=== PATIENT | male | born 1950 | race Caucasian/White ===

== ENCOUNTER → 2020-06-01 | Outpatient (CLI) | payer MEDICARE ==
[~2020-06-01] MED LIST: FOLIC ACID 40400 MCG PO; IRON65 M1 PO; OMEPRAZOLE20 MG PO; VITAMIN C BUFF500 MG PO
== END ==
LOC: COL.RAD 05-23 12:45
DX: D72.819 Decreased white blood cell count, unspecified (principal); N13.30 Unspecified hydronephrosis

== ENCOUNTER 2021-02-08 12:50 | Inpatient (IN) | payer MEDICARE, BC ==
[~2021-02-08] VITALS: Ht 165.1 cm; Wt 68.2 kg
[2021-02-08 13:34] LABS: HEMOGLOBIN 11.7 g/dl (13.5-18.0); MEAN CELL VOLUME 102 fl (80.0-100.0); MEAN CORPUSCULAR HEMOGLOBIN 35 pg (27.0-31.0); MEAN CORPUSCULAR HGB CONC 34 g/dl (33.0-37.0); MEAN PLATELET VOLUME 10.1 fl (7.4-10.4); PLATELET COUNT 155 K/mm3 (130-400); RED BLOOD COUNT 3.32 M/mm3 (4.20-5.60); REDCELL DISTRIBUTION WIDTH-CV 13.9 % (11.5-14.5)
[2021-02-08 13:47] LABS: ALBUMIN 3.2 gm/dL (3.5-5.0); CALCIUM 7.9 mg/dL (8.4-10.2); CREATININE, serum 0.88 (0.66-1.25); POTASSIUM 4.6 mmol/L (3.4-5.0); TOTAL PROTEIN 6.3 gm/dL (6.4-8.2)
[2021-02-08 13:50] LABS: COLLECTION METHOD CLEAN CATCH
[2021-02-08 13:58] LABS: MUCOUS Present /lpf; PH 5 (5-8); SQUAMOUS EPITHELIAL None Seen /hpf; URINE APPEARANCE Hazy; URINE BACTERIA Rare /hpf; URINE BILIRUBIN Negative (NEGATIVE); URINE BLOOD 2+ (NEGATIVE); URINE COLOR Yellow; URINE GLUCOSE 3+ (NEGATIVE); URINE KETONE 1+ (NEGATIVE); URINE LEUKOCYTE ESTERASE Trace (NEGATIVE); URINE NITRATE Negative (NEGATIVE); URINE PROTEIN(semi-quant) Negative (NEGATIVE); URINE UROBILINOGEN Negative (NEGATIVE)
[2021-02-08 13:59] LABS: INR 1.5 (0.8-3.0); PROTHROMBIN TIME 16.9 SECONDS (9.7-12.8)
[2021-02-08 14:01] LABS: C-REACTIVE PROTEIN 21.1 mg/dL (0.0-0.9)
[2021-02-08 14:09] LABS: BAND 15 % (0-10); LYMPHOCYTE 19 % (20.0-51.0); NEUTROPHILS 66 % (42.0-75.2); PLATELET ESTIMATE NORMAL (NORMAL)
[2021-02-08 14:31] LABS: TROPONIN-I 0.019 ng/mL (0.000-0.035)
--- NOTE | 2021-02-08 16:50 | NUR ---
Roofing Supervisor was contacted by JACOB Medellin at Dr. Oconnell's office who advised patient's friend, Aleksandr Smith (ph#[phone]) contacted her and was concerned with conditions of patient's home. Aleksandr had reported that patient is hoarding and his air conditioning is not working. Aleksandr also advised that patient is having to go to his ex , Juanis's home to shower and cool off. JACOB made report to Adult Protective Services ([id number]). Roofing Supervisor contacted patent's friend, Aleksandr who advised she has made arrangements with patient's ex , Juanis for patient to stay there tonight. Aleksandr advised she has concerns with the condition of patient's home. JACOB advised Aleksandr that a report had been made to APS and Aleksandr was in agreement. Aleksandr states she also contacted Paula Snowden at [facility] who does patient's annual BASIS assessment. Patient is assessed annually and up to this point, has been to independent and functional to qualify for any services through [facility]. Aleksandr advised that Paula also intends to make a report to APS and will work to see if they can re-assess patient due to current circumstances. JACOB also discussed Home Health services with Paula and reviewed agencies that serve [place]. Paula states patient would likely choose [facility]. JACOB contacted Miley at [facility] and faxed referral. JACOB then collaborated with JACOB Medellin at Dr. Oconnell's office who will work on scheduling follow up appointment and follow up with Dr. Oconnell about orders for as patient has been struggling to manage his diabetes at home. Patient has Medicare and [employer] [place]. 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 Patient retired about three years ago. JACBO collaborated the above information to ED RN. Brandon to fruit picker machine operator patient as he is cleared for discharge.
[2021-02-08] MEDS ORDERED: GLUCOPHAGE XR500 M1 PO (18:53)
[2021-02-08] MEDS ORDERED: LIPITOR 40MG TA40 MG PO (18:54)
[2021-02-08 19:20] LABS: CALCIUM 7.9 mg/dL (8.4-10.2); CREATININE, serum 0.77 (0.66-1.25); POTASSIUM 4.5 mmol/L (3.4-5.0)
--- NOTE | 2021-02-08 23:45 | NUR ---
PATIENT ARRIVED TO FLOOR FROM ED AT 23:23 PM ALERT AND ORIENTED X 3. INCONTINENT OF URINE. IVF NS INFUSING. VITAL SINGS STABLE. BOARDING MACHINE OPERATOR ON. CONDOM CATHETER APPLIED. PATIENT ORIENTED TO ROOM. CALL LIGHT IN REACH. BED LOW AND LOCKED. WILL CONTINUE TO MONITOR.
[2021-02-09] VITALS (8 sets, daily range): BP systolic 108–134; BP diastolic 56–68; PULSE 91–123; TEMP 98.2–99.5
[2021-02-09 07:15] LABS: HEMOGLOBIN 10.6 g/dl (13.5-18.0); MEAN CELL VOLUME 102 fl (80.0-100.0); MEAN CORPUSCULAR HEMOGLOBIN 35 pg (27.0-31.0); MEAN CORPUSCULAR HGB CONC 35 g/dl (33.0-37.0); MEAN PLATELET VOLUME 10.5 fl (7.4-10.4); PLATELET COUNT 140 K/mm3 (130-400)
[2021-02-09 07:16] LABS: HEMATOCRIT 30.6 % (42.0-52.0)
[2021-02-09 07:20] LABS: CALCIUM 7.4 mg/dL (8.4-10.2); CREATININE, serum 0.75 (0.66-1.25); POTASSIUM 3.8 mmol/L (3.4-5.0)
[2021-02-09 07:32] LABS: TROPONIN-I 0.018 ng/mL (0.000-0.035)
[2021-02-09 07:55] LABS: BAND 2 % (0-10); LYMPHOCYTE 26 % (20.0-51.0); NEUTROPHILS 70 % (42.0-75.2)
[2021-02-09 07:56] LABS: ANISOCYTOSIS 1+; PLATELET ESTIMATE NORMAL (NORMAL)
--- NOTE | 2021-02-09 18:48 | NUR ---
1755 PT HEART RATE WENT UP TO THE 140'S. VS CHECKED AND STABLE. PTDENIES ANY CHEST PAIN OR CHEST DISCOMFORT. CALL PLACE TO DR. DORANTES. ORDERS RECEIVED. 12 LEAD EKG DONE STAT. METOPROLOL AND IV 500CC NS BOLUS ADMINISTERED. PT HEART RATE DOWN TO 106. WILL CONTINUE TO MONITOR.
--- NOTE | 2021-02-09 19:22 | NUR ---
Received report from Maynor. Patient awake in bed. With ongoing NS bolus.
[2021-02-09 19:24] LABS: CALCIUM 7.2 mg/dL (8.4-10.2); CREATININE, serum 0.67 (0.66-1.25); POTASSIUM 3.9 mmol/L (3.4-5.0)
--- NOTE | 2021-02-09 21:10 | NUR ---
Assesment done. Patient says he just feels weak. He was able to lift his BUE but he cannot lift at all his legs. He denies pain. With condom catheter draining judy clear urine. Bed alarm on.
--- NOTE | 2021-02-10 02:24 | NUR ---
Contacted by director orange that patient is having several A-fib RVR for a few seconds with HR 150-160s and back to normal. BP 102/57 at 01:45 am. Called [facility] O[facility]pe[facility] and updated. Received order to give Metoprolol 5mg IV and NS IV bolus. Metorprolol IV given per OCT. NS IVF given per OCT. Will continue to monitor.
[2021-02-10 04:25] VITALS: BP 101/63; PULSE 87; TEMP 97.6
[2021-02-10 07:23] LABS: CREATININE, serum 0.61 (0.66-1.25); POTASSIUM 3.9 mmol/L (3.4-5.0)
[2021-02-10 07:42] VITALS: BP 119/59; PULSE 92; TEMP 97.2
--- NOTE | 2021-02-10 08:49 | NUR ---
Vancomycin Initial Dosing Pharmacy Note Ordering provider: Yung Branham MD Indication/duration: staph aureus bacteremia, 10 days LABS: SCr 0.61, CrCl~86, GFR 131 Recommendation: Give Vancomycin 1.5 gm IV x1 loading dose, then Vancomycin 1 gm IV q12h. Pharmacy will continue to monitor and check a Vancomycin trough on 02/12/21. Loading dose: 1.5 grams Maintenance dose: 1 gram every 12 hours Trough goal: 15-20 ug/mL
--- NOTE | 2021-02-10 09:00 | NUR ---
(late entry 02/09) Office Director attended clincial rounds with the team. The patient's friend Aleksandr on speaker phone. Per Aleksandr the patient lives alone and owns his own mobile home. The patient mental function at a 3rd or 4th grade level. The patient is typically independent. The patient's PCP is Dr. Oconnell. The patient states he as has two children, Crystal unknown last name and Walter Squires. The patient states they live in [place] but is estranged from them and does not know where they live. The patient has an aunt Margot Lee #[phone] and several siblings. Tu is the patient's youngest brother. PT is recommending post acute rehab. SW to contact Margot to discuss options. *Discharge disposition at this time: Post acute rehab*
--- NOTE | 2021-02-10 10:15 | NUR ---
Initial visit; Patient thanked Raw Sampler for listening and offering God's blessings. Raw Sampler called his nurse at his request.
--- NOTE | 2021-02-10 11:00 | NUR ---
Director Of Teenage Activities contacted the patient's aunt Margot Lee #[phone] to discuss placement. SW discussed Medicare.gov's list of post acute rehab. The choices are [facility], [facility], and [facility] in no particular order. Referrals sent. Margot states the the patient's ex- Juanis #[phone] is in contact with the patient's son, Walter. Margot states that she is 81 and has medical issues and does not want to get too involved with the patient. The patient has several siblings and she will have the youngest, Tu contact this SW. JACOB contacted MARCEL Benson Worker regarding the patient to provide the above information. Marcelino is assigned to the case. *Discharge disposition: Post acute rehab. Referrals sent to [facility], [facility]. Awaiting screens.
[2021-02-10 11:40] VITALS: BP 104/62; PULSE 95; TEMP 98.4
--- NOTE | 2021-02-10 12:37 | NUR ---
Noted to have methicillin resistant staphlococcus aureus growing in urine. Pt. to be placed in contact precautions.
[2021-02-10 17:15] VITALS: BP 134/86; PULSE 109; TEMP 97.6
[2021-02-10 19:04] VITALS: BP 112/72; PULSE 101; TEMP 99
--- NOTE | 2021-02-10 20:00 | NUR ---
Report received, assumed care for night manager. Assessment complete. A&O to self-very confused/forgetful. VS stable. Denies pain/nausea/shortness of breath. External male cath in place draining clear yellow urine. Plan of care discussed for this shift to include HS meds/antibiotics/calling for questions/concerns. Verbalizes understanding/denies needs. Call light in reach/bed alarm on. Will monitor.
[2021-02-11] VITALS (7 sets, daily range): BP systolic 104–130; BP diastolic 55–83; PULSE 77–96; TEMP 97.6–98.7
[2021-02-11 07:17] LABS: CALCIUM 7.4 mg/dL (8.4-10.2); CREATININE, serum 0.56 (0.66-1.25); HEMOGLOBIN 10.3 g/dl (13.5-18.0); MEAN CELL VOLUME 101 fl (80.0-100.0); MEAN CORPUSCULAR HEMOGLOBIN 35 pg (27.0-31.0); MEAN CORPUSCULAR HGB CONC 35 g/dl (33.0-37.0); MEAN PLATELET VOLUME 10.9 fl (7.4-10.4); PLATELET COUNT 126 K/mm3 (130-400); POTASSIUM 3.7 mmol/L (3.4-5.0); RED BLOOD COUNT 2.94 M/mm3 (4.20-5.60)
[2021-02-11 07:20] LABS: HEMATOCRIT 29.8 % (42.0-52.0)
[2021-02-11 09:13] LABS: BAND 12 % (0-10); EOSINOPHIL 3 % (0-4); LYMPHOCYTE 27 % (20.0-51.0); NEUTROPHILS 54 % (42.0-75.2); PLATELET ESTIMATE NORMAL (NORMAL)
--- NOTE | 2021-02-11 11:05 | NUR ---
0800 CRITICAL LAB VALUE RECEIVED (WBC 1.6). DR. CARPENTER MADE AWARE AND WILL REVIEW PT'S LABS. 1100 PT HAS A RVP TO BE DONE BUT ONE WAS ALREADY DONE. Christina CARPENTER MADE AWARE AND STATES PT DOES NOT NEED ANOTHER ONE. CALL PLACE TO FINANCIAL PROFESSIONAL TRUXTON AND SHE WILL CANCEL RVP.
--- NOTE | 2021-02-11 20:00 | NUR ---
Report received, assumed care for shift supervisor melting. Assessment complete. VS stable. Denies pain/nausea/shortness of breath. Is alert and partially oriented-forgetful. INT to right AC flushes without difficulty. External male cath with clear yellow urine. Plan of care discussed for this shift to include HS meds/blood sugar monitoring/calling for questions/concerns. Verbalizes understanding/denies current needs. Call light in reach. Will monitor.
--- NOTE | 2021-02-11 23:55 | NUR ---
Report given to IDALIA Ryan.
[2021-02-12 04:08] VITALS: BP 126/71; PULSE 90; TEMP 98.6
--- NOTE | 2021-02-12 05:14 | NUR ---
Changed patient's purewick. Repositioned him in bed and changed his bedsheets and gown.
[2021-02-12 07:53] LABS: MEAN CELL VOLUME 103 fl (80.0-100.0); MEAN CORPUSCULAR HEMOGLOBIN 35 pg (27.0-31.0); MEAN CORPUSCULAR HGB CONC 34 g/dl (33.0-37.0); MEAN PLATELET VOLUME 10.5 fl (7.4-10.4); PLATELET COUNT 174 K/mm3 (130-400); RED BLOOD COUNT 3.13 M/mm3 (4.20-5.60)
[2021-02-12 07:56] LABS: HEMATOCRIT 32.3 % (42.0-52.0)
[2021-02-12 08:02] LABS: CALCIUM 7.6 mg/dL (8.4-10.2); CREATININE, serum 0.59 (0.66-1.25); POTASSIUM 4.1 mmol/L (3.4-5.0)
[2021-02-12 08:08] VITALS: BP 130/69; PULSE 84; TEMP 98.3
[2021-02-12 09:01] LABS: BAND 2 % (0-10); EOSINOPHIL 2 % (0-4); LYMPHOCYTE 10 % (20.0-51.0); NEUTROPHILS 85 % (42.0-75.2)
[2021-02-12 09:02] LABS: ANISOCYTOSIS 1+; HYPOCHROMIA 1+; PLATELET ESTIMATE NORMAL (NORMAL)
[2021-02-12 11:55] VITALS: BP 124/77; PULSE 88; TEMP 98.2
[2021-02-12 16:45] VITALS: BP 137/70; PULSE 89; TEMP 97.6
[2021-02-12 20:29] VITALS: BP 135/79; PULSE 99; TEMP 97.6
--- NOTE | 2021-02-12 21:00 | NUR ---
PT IN BED. IS ALERT, FORGETFUL. TAKES HS MEDS WHOLE, WITHOUT DIFFICULTY. HAS EXTERNAL CATHETER ON, DRAINING CLEAR YELLOW URINE. HAS DECREASED MOBILITY IN LOWER LEGS. SL TO RIGHT AC, FLUSHES WELL. DENIES PAIN AT THIS TIME.
[2021-02-12 23:04] VITALS: BP 122/66; PULSE 83; TEMP 98.5
[2021-02-13 03:10] VITALS: BP 120/71; PULSE 89; TEMP 98.7
--- NOTE | 2021-02-13 04:00 | NUR ---
HAS BEEN RESTING WELL, EXT CATH DRAINING. DENIES NEEDS AT THIS TIME.
[2021-02-13 06:25] LABS: HEMOGLOBIN 12.1 g/dl (13.5-18.0); MEAN CELL VOLUME 103 fl (80.0-100.0); MEAN CORPUSCULAR HEMOGLOBIN 35 pg (27.0-31.0); MEAN CORPUSCULAR HGB CONC 34 g/dl (33.0-37.0); MEAN PLATELET VOLUME 10.5 fl (7.4-10.4); PLATELET COUNT 208 K/mm3 (130-400); RED BLOOD COUNT 3.48 M/mm3 (4.20-5.60)
[2021-02-13 06:36] LABS: CALCIUM 8.3 mg/dL (8.4-10.2); CREATININE, serum 0.66 (0.66-1.25); POTASSIUM 4.2 mmol/L (3.4-5.0)
[2021-02-13 06:40] LABS: HEMATOCRIT 35.9 % (42.0-52.0)
[2021-02-13 07:26] LABS: EOSINOPHIL 1 % (0-4); LYMPHOCYTE 25 % (20.0-51.0); MYELOCYTE 2 % (0-0); NEUTROPHILS 69 % (42.0-75.2)
[2021-02-13 07:27] LABS: PLATELET ESTIMATE NORMAL (NORMAL)
[2021-02-13 08:18] VITALS: BP 123/77; PULSE 97; TEMP 98.5
--- NOTE | 2021-02-13 08:40 | NUR ---
Shift assessment complete. Pt sitting in bed eating breakfast. Able to take pills whole w/some difficulty. Frequently coughs up clear mucous, reports this happens often when he tries to eat or drink. Lungs CTA. Heart RRR. A&Ox4. Denies needs. Call light in reach and bed alarm on.
[2021-02-13 11:05] VITALS: BP 103/78; PULSE 86; TEMP 97.8
[2021-02-13] MEDS ORDERED: AMOXICILLIN 8751 TAB PO (11:06)
[2021-02-13] MEDS ORDERED: ELIQUIS 5MG PO (11:06)
[2021-02-13] MEDS ORDERED: TYLENOL 325MG325 MG PO (11:07)
[2021-02-13] MEDS ORDERED: NOVOLOG 100U100 U/M1 SQ (11:07)
[2021-02-13] MEDS ORDERED: CORDARONE200 MG/TAB PO (11:07)
[2021-02-13] MEDS ORDERED: LOPRESSOR 225 MG/TAB PO (11:07)
--- NOTE | 2021-02-13 12:01 | NUR ---
Report called to [facility] nurse Jimenez. All questions answered.
--- NOTE | 2021-02-13 12:30 | NUR ---
Pt escorted down to IPR via wheelchair w/all belongings.
--- NOTE | 2021-02-13 13:24 | NUR ---
The patient discharged to [facility] today, 02/13 for post acute rehab. The patient's room board had his sisters (Hina) contact information. Her phone number is # [phone]. The patient's brother Tu phone number is # [phone]. JACOB contacted Hina and she was in agreeance with the plan for IPR. Hina reports she and Tu would like to be involved with the discharge planning. JACOB ensured her that they would be involved in the discharge planning process. JACOB collaborated the above with the IPR SW.
== END 2021-02-13 12:30 | DRG 872 ==
LOC: COL.ER 12:50 → MEDICAL 18:12
PROVIDERS: Emergency Medicine; Internal Medicine; Nurse Practitioner Family; Physician Assistant; ADMIT Internal Medicine
DX: A41.01 Sepsis due to Methicillin susceptible Staphylococcus aureus (principal); E87.1 Hypo-osmolality and hyponatremia; G93.40 Encephalopathy, unspecified; N39.0 Urinary tract infection, site not specified; E78.5 Hyperlipidemia, unspecified; D64.9 Anemia, unspecified; E11.65 Type 2 diabetes mellitus with hyperglycemia; I48.91 Unspecified atrial fibrillation; J32.0 Chronic maxillary sinusitis; G72.89 Other specified myopathies; D72.819 Decreased white blood cell count, unspecified; Z79.84 Long term (current) use of oral hypoglycemic drugs
CPT/HCPCS: 99223-AI; 99232-AI; 99233-AI; 99239; J0696; J1650; J1815; J3370; J7030; J7040; J7050

== ENCOUNTER 2021-02-13 10:29 | Inpatient (IN) | payer MEDICARE, BC ==
[~2021-02-13] VITALS: Ht 165.1 cm; Wt 70.4 kg
[~2021-02-13 10:29] MED LIST changes: +GLUCOPHAGE XR500 M1 PO; +LIPITOR 40MG TA40 MG PO
[2021-02-13] MEDS ORDERED: ELIQUIS 5MG PO (11:06)
[2021-02-13] MEDS ORDERED: AMOXICILLIN 8751 TAB PO (11:06)
[2021-02-13] MEDS ORDERED: NOVOLOG 100U100 U/M1 SQ (11:07)
[2021-02-13] MEDS ORDERED: TYLENOL 325MG325 MG PO (11:07)
[2021-02-13] MEDS ORDERED: CORDARONE200 MG/TAB PO (11:07)
[2021-02-13] MEDS ORDERED: LOPRESSOR 225 MG/TAB PO (11:07)
--- NOTE | 2021-02-13 13:00 | NUR ---
PATIENT ADMITED FROM MEDICAL INTO IPR ROOM 337. THERAPY AT BEDSIDE. SEE ADMISSION ORDERS.
[2021-02-13 17:14] VITALS: BP 114/76; PULSE 87; TEMP 98.1
[2021-02-13 18:27] VITALS: BP 114/76; PULSE 87; TEMP 98.1
--- NOTE | 2021-02-13 18:52 | NUR ---
Received report from IDALIA Velazquez. Patient is bed and eating. Call light and bedside table are within reach.
--- NOTE | 2021-02-13 19:16 | NUR ---
RECEIVED CHANGE OF SHIFT REPORT FROM DAY SHIFT NURSE. BED ALARM ON, PATIENT RESTING IN BED AT THIS TIME.
--- NOTE | 2021-02-13 20:00 | NUR ---
PATIENT DENIES CHEST PAIN/SOA AT THIS TIME. SPEECH CLEAR AND APPROPRIATE AT AT THIS TIME. CONDOM CATHETER IN PLACE. ON ROOM AIR. DENIES ANY DISCOMFORT OR NEEDS.
--- NOTE | 2021-02-14 01:14 | NUR ---
PATIENT AWAKE AT THIS TIME, STATES HE WOKE UP AND CANNOT GO BACK TO SLEEP. AGREED TO TAKE TYLENOL FOR COMFORT TO GO BACK TO SLEEP
[2021-02-14 03:58] VITALS: BP 105/65; PULSE 79; TEMP 97.9
--- NOTE | 2021-02-14 06:30 | NUR ---
Report received from IDALIA Velazquez. Patient is sleeping in bed. Call light and bedside table are within reach. Will continue to monitor patient throughout shift.
--- NOTE | 2021-02-14 06:55 | NUR ---
CHANGE OF SHIFT REPORT GIVEN TO DAY SHIFT NURSES, ARON RN AND SANDRA RN. BED ALARM ON.
--- NOTE | 2021-02-14 12:36 | NUR ---
Initial visit; Patient thanked Garage Door Technician for looking in on him and offering God's blessings.
--- NOTE | 2021-02-14 14:26 | NUR ---
This nurse removed patient's condomn catheter with no issues and requested the patient let the staff know when he has to urinate. Patient acknowledged understanding. Patient requested a urinal for bedside use until while he is bladder retraining. Will continue to monitor patient throughout shift.
[2021-02-14 15:27] VITALS: BP 118/72; PULSE 90; TEMP 97.7
--- NOTE | 2021-02-14 17:05 | NUR ---
SW met with the patient to complete intake, as the patient is new to [facility]. The patient lives alone in [place]. He states that his family lives up in the [facility]. He reports independence with ADLs before hospitalization and does not have any DME. The patient's PCP is Dr. Monae Oconnell and he receives his medications from [facility]. The patient does not have a DPOA-HC. The patient verbalized what a DPOA-HC is and that it designates someone to make decisions for him, if he cannot. SW asked the patient if he would like to complete one. The patient states that he believes his sister, Hina (ph#[phone]), is working on one for him. The patient is . He has two children: Vimal and Inna. His brother, Tu (ph#[phone]), is also involved in his care. The patient had no other questions for SW at this time. SW to follow up with the patient's sister about the DPOA-HC.
--- NOTE | 2021-02-14 18:44 | NUR ---
Report given to IDALIA Velazquez. Patient is currently in bathroom.
--- NOTE | 2021-02-14 18:52 | NUR ---
RECEIVED CHANGE OF SHIFT REPORT FROM DAY SHIFT NURSE. BED ALARM ON WHEN IN BED.
--- NOTE | 2021-02-14 20:00 | NUR ---
PATIENT DENIES ANY NEEDS OR CONCERNS. BED ALARM ON WHEN IN BED. ON ROOM AIR.
--- NOTE | 2021-02-15 02:28 | NUR ---
PATIENT SLEEPING, DOES NOT WAKE WHEN ROOM ENTERED BY STAFF. BED ALARM ON, CALL LIGHT WITHIN REACH. BREATHING OBSERVED NONLABORED AND EVEN.
[2021-02-15 05:09] VITALS: BP 115/66; PULSE 80; TEMP 97.4
--- NOTE | 2021-02-15 07:05 | NUR ---
CHANGE OF SHIFT REPORT GIVEN TO DAY SHIFT NURSE, RAMIRO FRIEDMAN. BED ALARM ON WHILE IN BED.
--- NOTE | 2021-02-15 16:43 | NUR ---
Team Conference meeting was today. JACOB contacted the patient's sister, Hina, to review the IPR Team Conference Note. The patient has progressed well and the team has set a d/c date for next , 02/23. Services are to be determined. Hina is in agreement to the d/c date. She reports that the patient does not want to go back to his trailer home and plans on selling it. JACOB discussed assisted living, long-term care, and respite stays and how it would be private pay. Hina reports that the patient does not have the funds to private pay at a facility. JACOB inquired about the option of the patient staying with friends or family members, until the patient gets a new apartment. Hina reports that the patient could probably stay with their brother, Tu, in [place]. She reports that she could get him set up with meals on wheels there and other services. Hina asks that SW contact Tu to discuss the above. JACOB then met with the patient and updated him on the above and presented and reviewed the IPR Team Conference Note. The patient confirms that he plans on cleaning up an selling his trailer. He reports that he would be open to staying with his brother in [place] until he finds a place. He had no other questions for SW at this time. JACOB to contact the patient's brother tomorrow, 02/16.
[2021-02-15 17:23] VITALS: BP 128/78; PULSE 98; TEMP 97.8
--- NOTE | 2021-02-15 18:30 | NUR ---
Patient did well today. He was up several times to the chair. Denies nausea and pain. He gets grumpy at times and starts to yell into the hallway at times. He called to go to the bathroom, this nurse was next door finishing with another patient. Within a few seconds of calling, he started to yell out he needs to go to the bathroom. He has also been yelling out for help at times instead of using he call light. Reminded him he needs to call for help. He has been eating and drinking without issues. No other changes at this time. Call light within reach. Bed alarm on.
--- NOTE | 2021-02-15 21:00 | NUR ---
PT RESTING IN BED. HAS URINARY URGENCY AT TIMES. DENIES BURNING. ON AUGMENTIN FOR UTI. PT ADMITS TO HAVING BM BUT FLUSHED IT. REMINDED PATIENT IMPORTANCE OF SAFETY. CALL LIGHT AND BED ALARM. PT AGREED. TAKES 2 PILLS AT AT TIMES W/WATER. COUGHS AT TIMES.
[2021-02-16 05:14] VITALS: BP 116/84; PULSE 79; TEMP 98.1
--- NOTE | 2021-02-16 13:48 | NUR ---
Admission QIM scores were reviewed by the team. Code of 5 chosen for eating was determined by team discussion to be the most usual performance for this patient during the assessment period. Code of 4 chosen for rolling left to right was determined by team discussion to be the most usual performance before interventions for this patient during the assessment period. Code of 3 chosen for sit to lying was determined by team discussion to be the most usual performance for this patient during the assessment period. Code of 3 chosen for lying to sitting on side of bed was determined by team discussion to be the most usual performance for this patient during the assessment period. Code of 2 for sit to stand was determined by team discussion to be the most usual performance for this patient during the assessment period. Code of 2 for chair/bed to chair transfers was determined by team discussion to be the most usual performance for this patient during the assessment period.--Laura Katz, PD
--- NOTE | 2021-02-16 13:50 | NUR ---
JACOB contacted the patient's brother, Tu, to discuss the option of the patient coming and staying with him upon discharge on 02/23 until the patient finds a new apartment. Tu reports that he would be agreeable to this plan. He states that he works 10-12 hours a day though and just wants to make sure that the patient would be able to be at home by himself. JACOB discussed keeping his PCP is [place] or switching to PCP in [place]. Tu reports that they would be able to bring the patient up to [place] for his appointments with Dr. Oconnell. A patient/family meeting was scheduled for next Saturday, 02/21, at 1300. Tu plans to be here for the meeting. JACOB updated IPR Director.
[2021-02-16 17:36] VITALS: BP 114/69; PULSE 86; TEMP 98
--- NOTE | 2021-02-16 18:30 | NUR ---
Patient did well today. No complaints of pain or nausea. He ate and drank without issues. No complaints of pain or nausea. Assisted him with a walk around the unit this afternoon. His ex- was here, she stated someone was going to his to help get it cleaned up. He said he did not know if she tell the truth. No other changes at this time. Call light within reach. Bed alarm on.
[2021-02-17 05:52] VITALS: BP 119/82; PULSE 81; TEMP 97.9
--- NOTE | 2021-02-17 06:30 | NUR ---
Received report from IDALIA Rucker. Patient was in bed. Call light and bedside table are within reach. Bed alarm is on. Will continue to monitor patient throughout shift.
--- NOTE | 2021-02-17 09:32 | NUR ---
Patient given prn Tylenol for low back pain. Will continue to monitor.
[2021-02-17 18:23] VITALS: BP 111/72; PULSE 84; TEMP 98
--- NOTE | 2021-02-17 20:07 | NUR ---
Patient attended all therapies this shift. He tolerated diet well. He did not complain of pain this morning, but this evening he was having some lower back pain, that was relieved by repositioning in bed. He is currently resting in bed, call light in reach and alarm set. Reported off to night nurse.
--- NOTE | 2021-02-17 22:42 | NUR ---
PT HAS BEEN RESTING WELLS. HE RATED HIS PAIN 0/10. WALK TO THE [facility] WITH NO COMPLAINT.WILL CONTINUE TO MONITOR.
[2021-02-18 05:27] VITALS: BP 124/58; PULSE 84; TEMP 98.5
--- NOTE | 2021-02-18 08:23 | NUR ---
Pt awake and alert this morning, talkative. Assisted to restroom. Shift assessments complete, left Pt call light in reach, bed in lowest position.
--- NOTE | 2021-02-18 21:24 | NUR ---
Pt has been in a good spirit. pain rated 0/10. Will continue to monitor.
[2021-02-19 05:24] VITALS: BP 131/47; PULSE 88; TEMP 97.9
--- NOTE | 2021-02-19 08:00 | NUR ---
PATIENT IS A&O. VSS. DENIES PAIN OR NAUSEA. BREAKFAST TRAY AT BESIDE. AM MEDS GIVEN. HEAD TO TOE ASSESSMENT COMPLETE. NO OTHER NEEDS. CALL LIGHT IN REACH. PATIENT SITTING UP IN WHEELCHAIR.
[2021-02-19 15:08] VITALS: BP 116/67; PULSE 86; TEMP 98.2
--- NOTE | 2021-02-19 18:32 | NUR ---
RECEIVED CHANGE OF SHIFT REPORT FROM DAY SHIFT NURSE. BED ALARM ON.
--- NOTE | 2021-02-19 20:30 | NUR ---
PATIENT DENIES CHEST PAIN/SOA AT THIS TIME. DENIES ANY DISCOMFORT TO BACK AT THIS TIME WHILE RESTING IN BED.
--- NOTE | 2021-02-19 23:51 | NUR ---
PATIENT NOW ASLEEP, DOES NOT WAKE WHEN STAFF ENTER ROOM. BREATHING NONLABORED AND EVEN. BED ALARM ON, CALL LIGHT WITHIN REACH.
--- NOTE | 2021-02-20 03:57 | NUR ---
PATIENT SLEEPING, DOES NOT WAKE WHEN STAFF ENTER ROOM. BREATHING NONLABORED AND EVEN. BED ALARM ON, CALL LIGHT WITHIN REACH.
[2021-02-20 04:54] VITALS: BP 104/53; PULSE 81; TEMP 97.4
--- NOTE | 2021-02-20 07:17 | NUR ---
CHANGE OF SHIFT REPORT GIVEN TO DAY SHIFT NURSE, TEETEE FRIEDMAN.
--- NOTE | 2021-02-20 08:00 | NUR ---
PATIENT IS A&O. VSS. DENIES PAIN OR NAUSEA. BREAKFAST TRAY AT BESIDE. AM MEDS GIVEN. HEAD TO TOE ASSESSMENT COMPLETE. NO OTHER NEEDS. CALL LIGHT IN REACH. PATIENT SITTING UP AT BEDSIDE. PATIENT PLANNING TO GET TO AFTER BREAKFAST AND GET CLEANED UP FOR THE DAY.
[2021-02-20 17:34] VITALS: BP 117/71; PULSE 93; TEMP 99.1
--- NOTE | 2021-02-20 18:50 | NUR ---
RECEIVED CHANGE OF SHIFT REPORT FROM DAY SHIFT NURSE. BED ALARM ON WHEN IN BED WITH CALL LIGHT WITHIN REACH.
--- NOTE | 2021-02-20 19:42 | NUR ---
COMPLAINING OF LOW BACK PAIN WITH MOVEMENT, HAS HISTORY OF LOW BACK PAIN PRIOR TO ADMIT TO HOSPITAL. DENIES CHEST PAIN/SOA/NAUSEA AT THIS TIME. BED ALARM ON WHEN BACK IN BED. CALL LIGHT WITHIN REACH.
[2021-02-21 06:04] VITALS: BP 100/62; PULSE 82; TEMP 97.9
[2021-02-21 07:15] VITALS: BP 116/87; PULSE 87; TEMP 97.8
--- NOTE | 2021-02-21 07:21 | NUR ---
CHANGE OF SHIFT REPORT GIVEN TO DAY SHIFT NURSES, ARON RN AND ANTONIETA FRIEDMAN.
--- NOTE | 2021-02-21 10:14 | NUR ---
Patient resting in bed at this time. He had an episode of emesis when working with Speech therapy this morning. Patient vomited 100 ml of fluids. VSS (BP 149/83, P 91, O2 at 95%). Patient reports low back pain and was given Tramadol when working with OT this morning.
[2021-02-21 11:31] LABS: HEMATOCRIT 38.7 % (42.0-52.0); MEAN CELL VOLUME 103 fl (80.0-100.0); MEAN CORPUSCULAR HEMOGLOBIN 35 pg (27.0-31.0); MEAN CORPUSCULAR HGB CONC 34 g/dl (33.0-37.0); MEAN PLATELET VOLUME 9.6 fl (7.4-10.4); PLATELET COUNT 291 K/mm3 (130-400); RED BLOOD COUNT 3.77 M/mm3 (4.20-5.60); REDCELL DISTRIBUTION WIDTH-CV 14.1 % (11.5-14.5)
[2021-02-21 11:41] LABS: ALBUMIN 3.6 gm/dL (3.5-5.0); BILIRUBIN,TOTAL 0.7 mg/dL (0.0-1.0); CALCIUM 9.1 mg/dL (8.4-10.2); CREATININE, serum 0.77 (0.66-1.25); POTASSIUM 4.8 mmol/L (3.4-5.0); TOTAL PROTEIN 7.4 gm/dL (6.4-8.2)
--- NOTE | 2021-02-21 11:48 | NUR ---
Patient had multiple episodes of emesis this morning and difficulty with getting phlegm up. Patient wasn't given a yanker with suction to help with removing phlegm. 18 gauge IV was placed to patients Right AC with no difficulty. He was given prn IV Zofran with good effect. See orders to hold therapy today. Will continue to monitor.
[2021-02-21 12:19] LABS: BAND 1 % (0-10); LYMPHOCYTE 24 % (20.0-51.0); NEUTROPHILS 75 % (42.0-75.2)
[2021-02-21 12:20] LABS: PLATELET ESTIMATE NORMAL (NORMAL)
--- NOTE | 2021-02-21 13:25 | NUR ---
Rehanger attended family meeting for the patient. The patient's brother, Tu and nephew were present. Staff present were Laura, [facility] Director, PT/OT/ST staff. Laura began with stating the purpose of the meeting. Each discipline discussed the patient's progress. The team has set a discharge date of , 02/23 with home health. The patient and family in agreeance. All questions answered. Upon discharge the patient will be staying with Tu at [address] [place] [address] in [place]. Following the meeting SW met with the patient and his family to present Medicare.gov's list of home health agencies. They will discuss the options then inform SW of their decision. *Discharge disposition: Home to brother Tu's house with home health*
--- NOTE | 2021-02-21 16:56 | NUR ---
The patient and his brother chose [facility]. Referral faxed and Pick Up Driver contacted [facility]. They will review the referral then inform of decision.
--- NOTE | 2021-02-21 16:59 | NUR ---
Patient has not had any more episodes of emesis following his dose of Zofran. He only ate 5% of this lunch, but did feel well enough to go for a short walk this afternoon around [facility] hallway. Call was placed to Speech Therapy regarding patient's diet per Brigitte YOUNG's request. See new orders for patient to be on Mechanical soft diet until he is evaluated by ST tomorrow. Patient is currently sleeping in bed, call light in reach and bed alarm set. Will continue to monitor.
[2021-02-21 17:23] VITALS: BP 132/82; PULSE 98; TEMP 97.8
--- NOTE | 2021-02-21 19:15 | NUR ---
RECEIVED CHANGE OF SHIFT REPORT FROM DAY SHIFT NURSE. BED ALARM ON WHILE IN BED. CALL LIGHT WITHIN REACH.
--- NOTE | 2021-02-21 21:00 | NUR ---
DENIES CHEST PAIN/SOA AT THIS TIME. DENIES NEED FOR PAIN MEDS BUT AGREES TO TAKE TYLENOL FOR DISCOMFORT WITH MOVEMENT. INT SITE IN PLACE TO RIGHT FOREARM. BED ALARM ON WITH CALL LIGHT WITHIN REACH.
[2021-02-22 05:23] VITALS: BP 112/68; PULSE 82; TEMP 97.8; TEMP 978.8
--- NOTE | 2021-02-22 06:30 | NUR ---
Report received from IDALIA Velazquez. Patient is sleeping in bed. Call light and bedside table are within reach. Will continue to monitor patient throughout shift.
--- NOTE | 2021-02-22 07:07 | NUR ---
CHANGE OF SHIFT REPORT GIVEN TO DAY SHIFT NURSES, RADHA FRIEDMAN AND ANTONIETA FRIEDMAN.
--- NOTE | 2021-02-22 13:13 | NUR ---
Magalie with [facility] contacted this Aircraft Structural Repairer and she states they can accept the patient for services. JACOB faxed walker order to [facility].
--- NOTE | 2021-02-22 13:32 | NUR ---
Deaf Teacher met with the patient to present the Team Conference Note. The patient had no questions at this time.
--- NOTE | 2021-02-22 16:12 | NUR ---
Laura, [facility] Director staffed with this Care Aide regarding the patient's discharge. GI was consulted for the patient. The discharge date was moved to tentatively discharge on Saturday, 02/24. JACOB contacted the patient's brother, Tu. He was in agreeance. JACOB contacted Magalie with [facility] to provide an update, left message.
[2021-02-22 17:24] VITALS: BP 121/71; PULSE 98; TEMP 99.4
[2021-02-23] VITALS (8 sets, daily range): BP systolic 107–134; BP diastolic 57–66; PULSE 88–100; TEMP 97.7–98.2
--- NOTE | 2021-02-23 08:55 | NUR ---
Pt assessment complete. Pt A/O x4. Has a lot of complaints this am. Feels stiff and sore and is slow to get up but once ambulating is steady. Wants some water. Denies pain. No N/V, took am pills without issues. Pt up to wheelchair at this time. Call light within reach.
--- NOTE | 2021-02-23 18:13 | NUR ---
Pt had EGD today. No further episodes of N/V. Took pills without issues. Up to the restroom with SBA. Reports being stiff and sore. No needs at this time. Call light within reach.
--- NOTE | 2021-02-23 20:48 | NUR ---
ASSISTED PT TO BR. SLOW GUARDED WEAK GAIT. SHAKY. PT INCONT IN BRIEFS. BACK TOP BED. NEEDED ASSIST WITH LIFTING LEGS INTO BED. PT TAKING 1 PILL AT A TIME WITH LONG LABORED PAUSES IN BETWEEN. OFFERED APLLESAUCE. NO NAUSEA. CALL LIGHT IN REACH. BED ALARM SET.
[2021-02-24 05:23] VITALS: BP 109/65; PULSE 100; TEMP 99.5
--- NOTE | 2021-02-24 06:30 | NUR ---
Patient is resting comfortably in bed. Call light and bedside table are within reach. Will continue to monitor patient throughout shift.
[2021-02-24 08:19] VITALS: TEMP 98.1
[2021-02-24] MEDS ORDERED: ELIQUIS 5MG PO (08:54)
[2021-02-24] MEDS ORDERED: PACERONE200 MG PO (08:55)
[2021-02-24] MEDS ORDERED: MUCUS RELIEF200 MG PO (08:56)
[2021-02-24] MEDS ORDERED: ULTRAM 50MG TAB50 MG PO (08:57)
[2021-02-24] MEDS ORDERED: ZOFRAN ODT4 MG PO (09:05)
[2021-02-24] MEDS ORDERED: GLUCOPHAGE500 MG/TAB PO (09:06)
--- NOTE | 2021-02-24 13:19 | NUR ---
The patient to discharge to his brother Reymundo fitzgerald in [place] today, 02/24 with [facility]. PT/OT/Nursing. Discharge orders faxed. There are no additional needs.
--- NOTE | 2021-02-24 13:26 | NUR ---
Discharge QIM scores were reviewed by the team. Code of 6 chosen for toilet hygiene was determined by team discussion to be the most usual performance for this patient during the assessment period. Code of 4 chosen for toileting transfers was determined by team discussion to be the most usual performance for this patient during the assessment period. Code of 6 chosen for shower/bathe self was determined by team discussion to be the most usual performance for this patient during the assessment period. Code of 6 chosen for sit to lying was determined by team discussion to be the most usual performance for this patient during the assessment period. Code of 6 chosen for lying to sitting on side of bed was determined by team discussion to be the most usual performance for this patient during the assessment period. Code of 4 for sit to stand was determined by team discussion to be the most usual performance for this patient during the assessment period. Code of 6 chosen for picking up objects was determined by team discussion to be the most usual performance for this patient during the assessment period.--Laura Katz,
--- NOTE | 2021-02-24 14:06 | NUR ---
Patient health summary, discharge summary, and home meds printed and reviewed with patient, Tu, and Aleksandr. Stressed importance of follow up appointments. Revied medications, provided printed Rx. Called prescriptions to pharmacy for Metoprolol and Lipitor. Belongings gathered by IDALIA Borjas. Patient was in possession of cell phone and psychic reader at time of discharge. Dirty clothes taken from laundry hamper and given to family. Patient transported via wheelchair by IDALIA Borjas and he was a MOD assist with gaitbelt with transfer from wheelchair into car. Patient seatbelted for ride to brother's home. Patient, Tu, and Aleksandr denied questions. .
== END 2021-02-24 14:06 | disposition home or self-care (01) | DRG 948 ==
PROVIDERS: Internal Medicine Gastroenterology; Physician Assistant; ADMIT Internal Medicine
PROC: 0DB78ZX Excision of Stomach, Pylorus, Via Natural or Artificial Opening Endoscopic, Diagnostic (ICD-10-PCS; 2021-02-23)
PROC: 0DB58ZX Excision of Esophagus, Via Natural or Artificial Opening Endoscopic, Diagnostic (ICD-10-PCS; principal; 2021-02-23 12:30)
DX: R53.81 Other malaise (principal); N39.0 Urinary tract infection, site not specified; G93.40 Encephalopathy, unspecified; E87.1 Hypo-osmolality and hyponatremia; E11.65 Type 2 diabetes mellitus with hyperglycemia; I48.91 Unspecified atrial fibrillation; G72.9 Myopathy, unspecified; J32.0 Chronic maxillary sinusitis; Z20.822 Contact with and (suspected) exposure to COVID-19; K44.9 Diaphragmatic hernia without obstruction or gangrene; K29.70 Gastritis, unspecified, without bleeding; K21.00 Gastro-esophageal reflux disease with esophagitis, without bleeding; D72.819 Decreased white blood cell count, unspecified; B95.61 Methicillin susceptible Staphylococcus aureus infection as the cause of diseases classified elsewhere; D64.9 Anemia, unspecified; E78.5 Hyperlipidemia, unspecified; Z79.84 Long term (current) use of oral hypoglycemic drugs; Z79.01 Long term (current) use of anticoagulants
CPT/HCPCS: 99222-AI; 99231-AI; 99232-AI; 99239; J1815; J2405; J2704; J7030

== ENCOUNTER 2021-02-28 10:28 | Inpatient (IN) | payer MEDICARE, BC ==
[~2021-02-28] VITALS: Ht 165.1 cm; Wt 76.4 kg
[2021-02-28] VITALS (491 sets, daily range): BP systolic 102–108; BP diastolic 64–77; PULSE 115–149; TEMP 97.7–98.3; O2SAT 65–100
[~2021-02-28 10:28] MED LIST changes: +AMOXICILLIN 8751 TAB PO; +CORDARONE200 MG/TAB PO; +ELIQUIS 5MG PO; +GLUCOPHAGE500 MG/TAB PO; +LOPRESSOR 225 MG/TAB PO; +MUCUS RELIEF200 MG PO; +NOVOLOG 100U100 U/M1 SQ; +PACERONE200 MG PO; +TYLENOL 325MG325 MG PO; +ULTRAM 50MG TAB50 MG PO; +ZOFRAN ODT4 MG PO
[2021-02-28 11:27] LABS: HEMOGLOBIN 12.3 g/dl (13.5-18.0); MEAN CELL VOLUME 102 fl (80.0-100.0); MEAN CORPUSCULAR HEMOGLOBIN 34 pg (27.0-31.0); MEAN CORPUSCULAR HGB CONC 34 g/dl (33.0-37.0); MEAN PLATELET VOLUME 10.5 fl (7.4-10.4); PLATELET COUNT 190 K/mm3 (130-400); RED BLOOD COUNT 3.58 M/mm3 (4.20-5.60); REDCELL DISTRIBUTION WIDTH-CV 14.2 % (11.5-14.5)
[2021-02-28 11:35] LABS: ALBUMIN 3.2 gm/dL (3.5-5.0); ALKALINE PHOSPHATASE 110 U/L (50-136); ANION GAP 15 mmol/L (7-16); AST,SGOT 72 U/L (15-37); BILIRUBIN,TOTAL 2.3 mg/dL (0.0-1.0); BLOOD UREA NITROGEN 56 mg/dL (9-20); CALCIUM 8.7 mg/dL (8.4-10.2); CARBON DIOXIDE 18 mmol/L (22-30); CREATININE, serum 1.61 (0.66-1.25); SODIUM 120 mmol/L (137-145)
[2021-02-28 11:38] LABS: COLLECTION METHOD CLEAN CATCH
[2021-02-28 11:41] LABS: ALANINE AMINOTRANSFERASE 55 U/L (4-49)
[2021-02-28 11:42] LABS: CHLORIDE 87 mmol/L (98-107); GLUCOSE 438 mg/dL (74-106)
[2021-02-28 11:49] LABS: MUCOUS Present /lpf; PH 5 (5-8); SQUAMOUS EPITHELIAL 0-2 /hpf; URINE APPEARANCE Hazy; URINE BACTERIA Rare /hpf; URINE BILIRUBIN Negative (NEGATIVE); URINE BLOOD 2+ (NEGATIVE); URINE COLOR Amber; URINE GLUCOSE 3+ (NEGATIVE); URINE KETONE Negative (NEGATIVE); URINE LEUKOCYTE ESTERASE Trace (NEGATIVE); URINE NITRATE Negative (NEGATIVE); URINE PROTEIN(semi-quant) 1+ (NEGATIVE); URINE UROBILINOGEN >=4.0 mg/dL (NEGATIVE)
[2021-02-28 11:52] LABS: HEMATOCRIT 36.6 % (42.0-52.0)
[2021-02-28 11:55] LABS: TROPONIN-I 0.036 ng/mL (0.000-0.035)
[2021-02-28 12:18] LABS: CREATINE KINASE 115 U/L (55-170); LIPASE 161 U/L (23-300)
[2021-02-28 13:00] LABS: PLATELET ESTIMATE NORMAL (NORMAL)
[2021-02-28 13:03] LABS: BAND 15 % (0-10); NEUTROPHILS 28 % (42.0-75.2)
[2021-02-28 13:05] LABS: LYMPHOCYTE 56 % (20.0-51.0)
[2021-02-28 14:39] LABS: ACETONE,SERUM NEGATIVE
--- NOTE | 2021-02-28 15:00 | NUR ---
PATIENT ARRIVES TO ICU ROOM 4 WITH BROTHER, IAN, AT THE BEDSIDE. AFTER SOME ADMISSION QUESTIONS ARE ASKED, HE STATES THAT HE WANTS HIS BROTHER TO BE MADE HIS MEDICAL POWER OF CERTIFIED REGISTERED DENTAL ASSISTANT FOR HEALTHCARE DECISIONS. HE ALSO EXPRESSES THAT HE WANTS TO BE A FULL CODE. SOCIAL WORK CALLED TO ASSIST IN DPOA PAPERWORK.
[2021-02-28 15:01] LABS: CALCIUM 8.1 mg/dL (8.4-10.2); CREATININE, serum 1.18 (0.66-1.25); POTASSIUM 5.1 mmol/L (3.4-5.0)
[2021-02-28] MEDS ORDERED: VITAMIN D31000 I1 PO (15:09)
[2021-02-28] MEDS ORDERED: IRON GLYCINATE29 MG PO (15:10)
[2021-02-28 15:25] LABS: TRICYCLIC ANTIDEPRESS URINE NEGATIVE
--- NOTE | 2021-02-28 16:34 | NUR ---
ironworker wire fence erector received a call from Luis Alberto Rowe social service manager that patient's family were attempting to have patient admitted to [facility] for skilled care. Worker notified Iván at [facility] and gave a referral with faxed clinical information. Patient is admitted to ICU. Worker and nurse met with patient and his brother, Tu and provided education on durable power of assistant district attorney for health care. Patient verbalized understanding of the durable poer of assistant district attorney for health care and signed form. Worker place a copy of document in the chart and gave Tu the original and copies.
--- NOTE | 2021-02-28 18:10 | NUR ---
DR. SERRANO GIVES ORDER FOR CURTIS CATHETER TO CLOSELY MONITOR INTAKE AND OUTPUT.
--- NOTE | 2021-02-28 18:20 | NUR ---
18 ARMENIAN CURTIS PLACED FOR MONITOR I&O DURING CRITICAL ILLNESS. PATIENT TOLERATES WELL.
[2021-02-28 18:33] LABS: CALCIUM 6.8 mg/dL (8.4-10.2); CREATININE, serum 0.93 (0.66-1.25); POTASSIUM 4.2 mmol/L (3.4-5.0)
--- NOTE | 2021-02-28 18:48 | NUR ---
CRITICAL NA, MATEOIED, AND BG RECEIVED. RESULTS CALLED VANGIE YOUNG. STATES SHE WILL DISCUSS WITH LOUIS AND CALL BACK. CHELO JEREZ RN NOTIFIED.
--- NOTE | 2021-02-28 19:15 | NUR ---
Received report from IDALIA Verduzco.
--- NOTE | 2021-02-28 19:30 | NUR ---
REPORT GIVEN TO IDALIA CHAN
[2021-02-28 20:48] LABS: CALCIUM 7.5 mg/dL (8.4-10.2); CREATININE, serum 1.28 (0.66-1.25); POTASSIUM 4.5 mmol/L (3.4-5.0)
[2021-02-28 22:47] LABS: CALCIUM 7.4 mg/dL (8.4-10.2); CREATININE, serum 1.29 (0.66-1.25); POTASSIUM 4.8 mmol/L (3.4-5.0)
[2021-03-01] VITALS (904 sets, daily range): BP systolic 98–137; BP diastolic 69–93; PULSE 113–142; TEMP 97.6–98.5; O2SAT 78–100
[2021-03-01 01:17] LABS: CALCIUM 7.3 mg/dL (8.4-10.2); CREATININE, serum 1.18 (0.66-1.25); POTASSIUM 4.8 mmol/L (3.4-5.0)
[2021-03-01 05:17] LABS: MEAN CELL VOLUME 101 fl (80.0-100.0); MEAN CORPUSCULAR HGB CONC 34 g/dl (33.0-37.0); MEAN PLATELET VOLUME 10.4 fl (7.4-10.4); PLATELET COUNT 143 K/mm3 (130-400); RED BLOOD COUNT 2.85 M/mm3 (4.20-5.60); REDCELL DISTRIBUTION WIDTH-CV 14.1 % (11.5-14.5)
[2021-03-01 05:18] LABS: HEMATOCRIT 28.9 % (42.0-52.0); HEMOGLOBIN 9.7 g/dl (13.5-18.0); MEAN CORPUSCULAR HEMOGLOBIN 34 pg (27.0-31.0)
[2021-03-01 05:30] LABS: ALBUMIN 2.2 gm/dL (3.5-5.0); BILIRUBIN,TOTAL 2.1 mg/dL (0.0-1.0); CALCIUM 7.1 mg/dL (8.4-10.2); CREATININE, serum 0.97 (0.66-1.25); POTASSIUM 4.3 mmol/L (3.4-5.0); TOTAL PROTEIN 5.2 gm/dL (6.4-8.2)
[2021-03-01 05:50] LABS: BAND 15 % (0-10); LYMPHOCYTE 78 % (20.0-51.0); METAMYELOCYTE 2 % (0-0); NEUTROPHILS 5 % (42.0-75.2); TROPONIN-I 0.039 ng/mL (0.000-0.035)
[2021-03-01 05:51] LABS: PLATELET ESTIMATE NORMAL (NORMAL)
[2021-03-01 05:52] LABS: BURR CELLS 1+; SCHISTOCYTES 1+
--- NOTE | 2021-03-01 07:00 | NUR ---
RECEIVED REPORT FROM IDALIA MORA. PT ON RA. VSS. CALL LIGHT WITHIN REACH. SEE GTT FLOWSHEET. FC PATENT AND DRAINING TO GRAVITY.
--- NOTE | 2021-03-01 08:50 | NUR ---
LAURIE MOLINA NOTIFIED OF HR 120-140s. STATES ONLY TO START CARDIZEM GTT IF HR SUSTAINS GREATER THAN 150.
[2021-03-01 09:10] LABS: PATHOLOGY DIFF REVIEW OK +
--- NOTE | 2021-03-01 09:31 | NUR ---
JACOB completed intake with patient. Patient stated that he has lived in [facility] for several years alone. D[facility]HC is [facility] [phone]. Patient provides that he does utilize a walker as well as a cane and has recently obtained assistance with ADL's. Patient provides that his pharmacy is currently [facility], and states that he is able to afford his medications at this time. JACOB sent updates to [facility] staff member Iván, JACOB also instructed SW leader to provide DPOA-HC document to [facility]. JACOB will continue to follow. Plan: [facility]
--- NOTE | 2021-03-01 11:14 | NUR ---
Iván Avalos accepts patient upon discharge from the hospital.
--- NOTE | 2021-03-01 11:25 | NUR ---
JACOB attended rounds with physician and pharmacy technician assistant. Patient has been accepted to [facility] up on discharge. Rounding team stated it would be a few days before transfer. KARIE Mae called by JACOB to inform him of updates. JACOB will continue to follow.
--- NOTE | 2021-03-01 13:14 | NUR ---
DR GAMINO AT BEDSIDE FOR ASSESSMENT. NEW ORDERS RECEIVED.
[2021-03-01 14:35] LABS: HEMOGLOBIN 9.9 g/dl (13.5-18.0)
[2021-03-01 14:40] LABS: HEMATOCRIT 29.7 % (42.0-52.0)
--- NOTE | 2021-03-01 17:50 | NUR ---
PT TO MRI AT 1610 VIA STRETCHER. BACK AT 1750.
[2021-03-02] VITALS (838 sets, daily range): BP systolic 113–136; BP diastolic 66–79; PULSE 100–118; TEMP 97.5–99.3; O2SAT 80–100
[2021-03-02 04:31] LABS: MEAN CELL VOLUME 104 fl (80.0-100.0); MEAN CORPUSCULAR HGB CONC 33 g/dl (33.0-37.0); MEAN PLATELET VOLUME 10.2 fl (7.4-10.4); PLATELET COUNT 134 K/mm3 (130-400); REDCELL DISTRIBUTION WIDTH-CV 14.6 % (11.5-14.5)
[2021-03-02 04:34] LABS: HEMOGLOBIN 8.9 g/dl (13.5-18.0); MEAN CORPUSCULAR HEMOGLOBIN 34 pg (27.0-31.0)
[2021-03-02 04:43] LABS: ALBUMIN 2.2 gm/dL (3.5-5.0); BILIRUBIN,TOTAL 1.5 mg/dL (0.0-1.0); CREATININE, serum 0.7 (0.66-1.25); POTASSIUM 3.8 mmol/L (3.4-5.0); TOTAL PROTEIN 5.1 gm/dL (6.4-8.2)
[2021-03-02 05:23] LABS: BAND 21 % (0-10); LYMPHOCYTE 56 % (20.0-51.0); NEUTROPHILS 22 % (42.0-75.2); PLATELET ESTIMATE NORMAL (NORMAL)
--- NOTE | 2021-03-02 07:15 | NUR ---
RECEIVED REPORT FROM IDALIA CALDWELL. PT RESTING IN BED ON RA. FC PATENT AND DRAINING TO GRAVITY. CALL LIGHT WITHIN REACH. VSS. SEE GTT FLOWSHEET.
--- NOTE | 2021-03-02 09:56 | NUR ---
Initial visit; Patient declined prayer. Edging Machine Operator offered God's blessings and a thorough recovery.
--- NOTE | 2021-03-02 20:00 | NUR ---
Assessment complete. Pt is alert but conversationally confused. He denies having any pain at this time. Pt is sitting up in the bed watching TV at this time and he denies further needs. Call light within reach.
--- NOTE | 2021-03-02 21:00 | NUR ---
1000 UNIT HEPARIN BOLUS GIVEN OFF OF IV BAG.
[2021-03-03] VITALS (1160 sets, daily range): BP systolic 123–154; BP diastolic 74–95; PULSE 89–104; TEMP 97.5–98; O2SAT 30–100
[2021-03-03 03:14] LABS: MEAN CELL VOLUME 106 fl (80.0-100.0); MEAN CORPUSCULAR HGB CONC 33 g/dl (33.0-37.0); MEAN PLATELET VOLUME 10.6 fl (7.4-10.4); PLATELET COUNT 144 K/mm3 (130-400); RED BLOOD COUNT 2.51 M/mm3 (4.20-5.60); REDCELL DISTRIBUTION WIDTH-CV 14.8 % (11.5-14.5)
[2021-03-03 03:18] LABS: HEMATOCRIT 26.7 % (42.0-52.0); HEMOGLOBIN 8.7 g/dl (13.5-18.0); MEAN CORPUSCULAR HEMOGLOBIN 35 pg (27.0-31.0)
[2021-03-03 03:23] LABS: ALBUMIN 2.2 gm/dL (3.5-5.0); BILIRUBIN,TOTAL 1.4 mg/dL (0.0-1.0); CREATININE, serum 0.66 (0.66-1.25); POTASSIUM 3.8 mmol/L (3.4-5.0); TOTAL PROTEIN 5.3 gm/dL (6.4-8.2)
[2021-03-03 03:57] LABS: BAND 18 % (0-10); EOSINOPHIL 1 % (0-4); LYMPHOCYTE 42 % (20.0-51.0); NEUTROPHILS 39 % (42.0-75.2); PLATELET ESTIMATE NORMAL (NORMAL)
--- NOTE | 2021-03-03 07:00 | NUR ---
PT RESTING IN BED. PT ON A AMIO DRIP AND HEPARIN DRIPS. VSS. WILL CONTINUE TO MONTIOR.
--- NOTE | 2021-03-03 07:16 | NUR ---
Bedside shift report given to IDALIA Chang.
[2021-03-03 10:50] LABS: RETIC # 0.04 M/mm3 (0.02-0.16); RETIC % 1.8 % (0.5-3.52)
--- NOTE | 2021-03-03 14:51 | NUR ---
VIDEO SWALLOW COMPLETED BY SPEECH. STATES UNSAFE FOR PO INTAKE AT THIS TIME. WILL CONTINUE NPO.
--- NOTE | 2021-03-03 20:00 | NUR ---
Assessment complete. Pt is alert but cannot answer orientation question qppropriately. He denies having any pain. Pt repositioned in bed at this time and he denies further needs. Call light within reach.
[2021-03-04] VITALS (1316 sets, daily range): BP systolic 86–148; BP diastolic 43–95; PULSE 69–92; TEMP 97.6–99; O2SAT 30–100
[2021-03-04 06:47] LABS: MEAN CELL VOLUME 108 fl (80.0-100.0); MEAN CORPUSCULAR HGB CONC 32 g/dl (33.0-37.0); MEAN PLATELET VOLUME 10.7 fl (7.4-10.4); PLATELET COUNT 159 K/mm3 (130-400); RED BLOOD COUNT 2.67 M/mm3 (4.20-5.60); REDCELL DISTRIBUTION WIDTH-CV 15.3 % (11.5-14.5)
[2021-03-04 06:48] LABS: HEMATOCRIT 28.7 % (42.0-52.0); HEMOGLOBIN 9.2 g/dl (13.5-18.0); MEAN CORPUSCULAR HEMOGLOBIN 34 pg (27.0-31.0)
[2021-03-04 06:52] LABS: ALBUMIN 2.2 gm/dL (3.5-5.0); BILIRUBIN,TOTAL 1.3 mg/dL (0.0-1.0); CALCIUM 7.3 mg/dL (8.4-10.2); CREATININE, serum 0.53 (0.66-1.25); TOTAL PROTEIN 5.6 gm/dL (6.4-8.2)
--- NOTE | 2021-03-04 07:00 | NUR ---
PT JUST INTUBATED AND SEDATED AT 0623. PT'S VSS. BEDSIDE TO EVALUATE PT. WILL CONTINUE TO MONTIOR.
[2021-03-04 07:01] LABS: BAND 20 % (0-10); LYMPHOCYTE 46 % (20.0-51.0); NEUTROPHILS 33 % (42.0-75.2); PLATELET ESTIMATE NORMAL (NORMAL)
--- NOTE | 2021-03-04 07:15 | NUR ---
Bedside shift report given to IDALIA Chang.
--- NOTE | 2021-03-04 07:46 | NUR ---
0500 - Oral cares performed. Able to suction out a large mucus plug. Pt voice clears up and is more easily understandable after suctioning. 0530 - Pt begins to destat into the 70's on room air. Scot, RT, at bedside. Pt suctioned again and placed on 15L via oxymask. Pt's sats return to high 90's on O2. Pt's mentation remains at baseline of partially oriented. 0606 - Called by tele desk that pt sats are in the 70's. Upon entering room pt is minimally responsive to sternal rub. AMANDA Hartman, called and notified of situation. Called Dr. Carpenter, ED provider, for immediate intuabtion. 0610 - Dr. Carpenter at bedside. Scot, RT, at bedside with ventilator. 0615 - Called Dr. Hollis to give an update on pt status. Left voicemail. 0619 - Dr. Hollis called back and given an update on pt status. 0623 - Intubation complete. 0624 - Called for CXR. 0635 - Propofol gtt and fentanyl gtt initiated. 0640 - OG tube placed 55cm at the teeth. 0650 - Pt cleaned up and repositioned in bed.
[2021-03-04 07:58] LABS: ARTERIAL BLD GAS O2 SATURATION 99.4 % (92-100); ARTERIAL BLOOD GAS HCO3 20.9 meq/L (22-26); ARTERIAL BLOOD GAS PCO2 37.3 mmHg (35-45); ARTERIAL BLOOD GAS pH 7.37 (7.35-7.45)
[2021-03-04 07:59] LABS: ARTERIAL BLOOD GAS PO2 237.7 mmHg (80-100)
--- NOTE | 2021-03-04 08:00 | NUR ---
Called Tu, pt's brother/DPOA, and gave him and update on pt status.
--- NOTE | 2021-03-04 10:35 | NUR ---
PT'S BROTHER IAN WILL NOW BE PT'S VISITOR. APPROVED BY JEVON GRID CASTING MACHINE OPERATOR HELPER. ALYSSA PT'S FRIEND [phone] WILL NO LONGER BE PTS VISITOR.
--- NOTE | 2021-03-04 16:49 | NUR ---
PT RESPONDS TO TOUCH. PT ABLE TO MOVE ALL EXTREMITIES. PT BECOMES AGITATED WHEN ATTEMPTING TO ASK QUESITONS OR FOR HIM TO FOLLOW COMMONDS. WILL LEAVE SEDATION IS. WILL CONTINUE TO MONITOR.
--- NOTE | 2021-03-04 20:00 | NUR ---
Assessment complete. Pt is on the ventilator. He is responsive to voice and is able to follow commands. Pt repositioned in the bed at this time and he appears comfortable. Call light within reach.
[2021-03-05] VITALS (1317 sets, daily range): BP systolic 110–130; BP diastolic 61–79; PULSE 74–83; TEMP 98–99; O2SAT 68–100
[2021-03-05 04:45] LABS: ARTERIAL BLD GAS O2 SATURATION 98.2 % (92-100); ARTERIAL BLD GAS TCO2 CT 23.6; ARTERIAL BLOOD GAS BASE EXCESS -1.4 (-2-2); ARTERIAL BLOOD GAS HCO3 22.5 meq/L (22-26); ARTERIAL BLOOD GAS PCO2 34.3 mmHg (35-45); ARTERIAL BLOOD GAS PO2 113.3 mmHg (80-100); ARTERIAL BLOOD GAS pH 7.44 (7.35-7.45)
--- NOTE | 2021-03-05 05:00 | NUR ---
No sedation vacation performed as pt has not been intubated for 24hrs. He has been responsive to voice and able to follow commands at current sedation all night long.
[2021-03-05 05:45] LABS: MEAN CELL VOLUME 106 fl (80.0-100.0); MEAN CORPUSCULAR HGB CONC 32 g/dl (33.0-37.0); MEAN PLATELET VOLUME 10.9 fl (7.4-10.4); PLATELET COUNT 146 K/mm3 (130-400); RED BLOOD COUNT 2.53 M/mm3 (4.20-5.60); REDCELL DISTRIBUTION WIDTH-CV 15.4 % (11.5-14.5)
[2021-03-05 05:48] LABS: HEMATOCRIT 26.7 % (42.0-52.0); HEMOGLOBIN 8.6 g/dl (13.5-18.0); MEAN CORPUSCULAR HEMOGLOBIN 34 pg (27.0-31.0)
--- NOTE | 2021-03-05 07:00 | NUR ---
REPORT RECEIVED FROM EDITH FRIEDMAN. PT IS INTUBATED, ON AMIO, NS, AND PROPOFOL. VSS. WILL CONTINUE TO MONTIOR AND ASSESS.
--- NOTE | 2021-03-05 07:26 | NUR ---
Bedside shift report given to IDALIA Chang.
--- NOTE | 2021-03-05 17:00 | NUR ---
PT FOLLOWS COMMANDS. PT ABLE TO MOVE ALL EXTREMETIES. PT ABLE TO ANSWER SOME YES/NO QUESTIONS. WILL LEAVE SEDATION AT CURRENT RATE. WILL CONTINUE TO MONTIOR.
[2021-03-06] VITALS (1058 sets, daily range): BP systolic 118–144; BP diastolic 63–81; PULSE 75–89; TEMP 98.3–99.1; O2SAT 66–100
[2021-03-06 04:37] LABS: BASO % 0.3 % (0.0-2.0); EOS % 0.3 % (0-4.0); GRAN # 1.9 (1.4-6.5); GRAN % 65.3 % (42.2-75.2); LYMPH # 0.9 (1.2-3.4); LYMPH % 32.8 % (20.0-51.0); MEAN CELL VOLUME 107 fl (80.0-100.0); MEAN CORPUSCULAR HGB CONC 32 g/dl (33.0-37.0); MEAN PLATELET VOLUME 11.4 fl (7.4-10.4); PLATELET COUNT 153 K/mm3 (130-400); RED BLOOD COUNT 2.42 M/mm3 (4.20-5.60); REDCELL DISTRIBUTION WIDTH-CV 15.8 % (11.5-14.5)
[2021-03-06 04:42] LABS: HEMATOCRIT 25.9 % (42.0-52.0); HEMOGLOBIN 8.3 g/dl (13.5-18.0); MEAN CORPUSCULAR HEMOGLOBIN 34 pg (27.0-31.0)
[2021-03-06 04:47] LABS: CREATININE, serum 0.6 (0.66-1.25)
[2021-03-06 04:48] LABS: ALBUMIN 2.1 gm/dL (3.5-5.0); BILIRUBIN,TOTAL 0.6 mg/dL (0.0-1.0); CALCIUM 6.9 mg/dL (8.4-10.2); MAGNESIUM 2.3 mg/dL (1.6-2.3); PHOSPHOROUS 2.7 mg/dL (2.5-4.5); POTASSIUM 3.5 mmol/L (3.4-5.0); TOTAL PROTEIN 5.5 gm/dL (6.4-8.2)
[2021-03-06 04:55] LABS: PRE ALBUMIN 4.6 mg/dL (17.6-36.0)
--- NOTE | 2021-03-06 05:18 | NUR ---
PT FOLLOWS COMMANDS AND IS BREATHING WITH VENT SETTINGS. NO PLANS TO EXTUBATE TODAY. SEDATION MINIMAL. NO OFFICIAL SEDATION VACATION COMPLETED.
[2021-03-06 05:24] LABS: ARTERIAL BLD GAS O2 SATURATION 98.3 % (92-100); ARTERIAL BLD GAS TCO2 CT 25.5; ARTERIAL BLOOD GAS BASE EXCESS 0.7 (-2-2); ARTERIAL BLOOD GAS HCO3 24.5 meq/L (22-26); ARTERIAL BLOOD GAS PCO2 35.5 mmHg (35-45); ARTERIAL BLOOD GAS pH 7.46 (7.35-7.45)
--- NOTE | 2021-03-06 06:57 | NUR ---
PT REMAINED ON SAME SEDATION. 20 MCG/KG/MIN OF PROPOFOL. REMAINED COMFORTABLE AND ABLE TO FOLLOW COMMANDS. TALKED TO BROTHER IAN FOR UPDATE AND AXPLAINED PENDING BLOOD TESTS. HE UNDERSTANDS PLAN OF CARE AND ALL QUESTIONS ANSWERED AT THAT TIME. PT REMAINED WITH COPIOUS SECRETIONS. OC PROVIDED FREQUENTLY.
--- NOTE | 2021-03-06 07:45 | NUR ---
Patient opens eyes to speech. Able to squeeze hands and wiggle toes on command. VS stable at this time. Tolerating ventilator well. Will continue to monitor.
--- NOTE | 2021-03-06 09:00 | NUR ---
Updated family via telephone; all questions and concerns addressed at this time.
--- NOTE | 2021-03-06 10:10 | NUR ---
Sedation decreased and patient placed on CPAP mode; tolerating well. Will continue to monitor.
--- NOTE | 2021-03-06 14:09 | NUR ---
Updated Director Educational Radio of patient status on CPAP trial. Has been tolerating well with good tidal volumes and RR rate. Will attempt extubation. RT notified.
--- NOTE | 2021-03-06 14:50 | NUR ---
Extubated at this time; tolerated well. 02 96% on 6L oxymask. Assisted with oral suctioning as needed. Will contine to monitor.
[2021-03-06 16:52] LABS: MAGNESIUM 2.1 mg/dL (1.6-2.3); POTASSIUM 3.5 mmol/L (3.4-5.0)
--- NOTE | 2021-03-06 21:00 | NUR ---
Assessment complete and charted. Denies needs at this time. Tolerated taking PO amio well.
[2021-03-07] VITALS (520 sets, daily range): BP systolic 132–140; BP diastolic 68–89; PULSE 85–90; TEMP 98.2–99; O2SAT 79–100
[2021-03-07 04:31] LABS: BASO % 0.7 % (0.0-2.0); EOS % 0.4 % (0-4.0); GRAN # 1.7 (1.4-6.5); GRAN % 61.1 % (42.2-75.2); LYMPH # 1.1 (1.2-3.4); MEAN CELL VOLUME 109 fl (80.0-100.0); MEAN CORPUSCULAR HGB CONC 31 g/dl (33.0-37.0); MEAN PLATELET VOLUME 11.2 fl (7.4-10.4); MONO % 0.4 % (1.7-9.3); PLATELET COUNT 144 K/mm3 (130-400); RED BLOOD COUNT 2.35 M/mm3 (4.20-5.60); REDCELL DISTRIBUTION WIDTH-CV 15.9 % (11.5-14.5)
[2021-03-07 04:36] LABS: HEMATOCRIT 25.6 % (42.0-52.0); MEAN CORPUSCULAR HEMOGLOBIN 34 pg (27.0-31.0)
[2021-03-07 04:43] LABS: ALBUMIN 2.2 gm/dL (3.5-5.0); BILIRUBIN,TOTAL 0.7 mg/dL (0.0-1.0); CALCIUM 7.2 mg/dL (8.4-10.2); CREATININE, serum 0.64 (0.66-1.25); POTASSIUM 3.9 mmol/L (3.4-5.0); TOTAL PROTEIN 5.8 gm/dL (6.4-8.2)
[2021-03-07 05:14] LABS: ANISOCYTOSIS 1+; BAND 30 % (0-10); HYPOCHROMIA 2+; LYMPHOCYTE 16 % (20.0-51.0); NEUTROPHILS 54 % (42.0-75.2); PLATELET ESTIMATE NORMAL (NORMAL)
--- NOTE | 2021-03-07 06:34 | NUR ---
Patient had uneventful night. On room air throughout night. Denies needs this AM. Call light in reach.
--- NOTE | 2021-03-07 07:46 | NUR ---
Report given to IDALIA Verduzco
--- NOTE | 2021-03-07 10:54 | NUR ---
SW attended rounds with physician and team. Patient will be moving to medical floor today 03/07/21 per physician. DPOA- Tu called to inform of patient moving to medical floor. [facility] staff Iván called and requested updates on patient. JACOB faxed updates to [facility]. JACOB will continue to follow.
--- NOTE | 2021-03-07 18:42 | NUR ---
Patient arrived to the unit and is doing well. Has no complaints at this time. Remains NPO at this time, but is being given a small amount of ice chips to keep his mouth moistenen. RN from ICU reported that it has been approved that the patient has his pills crushed and mixed with a small amount of apple sauce.
[2021-03-08 00:58] VITALS: BP 145/61; PULSE 84; TEMP 98.5
[2021-03-08 03:51] VITALS: BP 144/57; PULSE 82; TEMP 98.7
[2021-03-08 06:55] LABS: MEAN CELL VOLUME 110 fl (80.0-100.0); MEAN CORPUSCULAR HGB CONC 31 g/dl (33.0-37.0); MEAN PLATELET VOLUME 11.4 fl (7.4-10.4); PLATELET COUNT 164 K/mm3 (130-400); RED BLOOD COUNT 2.32 M/mm3 (4.20-5.60); REDCELL DISTRIBUTION WIDTH-CV 15.8 % (11.5-14.5)
[2021-03-08 06:59] LABS: HEMATOCRIT 25.5 % (42.0-52.0); HEMOGLOBIN 7.9 g/dl (13.5-18.0); MEAN CORPUSCULAR HEMOGLOBIN 34 pg (27.0-31.0)
[2021-03-08 07:00] LABS: CALCIUM 7.7 mg/dL (8.4-10.2); CREATININE, serum 0.65 (0.66-1.25); POTASSIUM 3.7 mmol/L (3.4-5.0)
[2021-03-08 07:36] LABS: BAND 12 % (0-10); LYMPHOCYTE 35 % (20.0-51.0); NEUTROPHILS 53 % (42.0-75.2); NUCLEATED RED BLOOD CELL 1 (0-6); PLATELET ESTIMATE NORMAL (NORMAL)
[2021-03-08 09:00] VITALS: BP 146/61; PULSE 86; TEMP 99.2
--- NOTE | 2021-03-08 10:10 | NUR ---
PT RESTING IN BED. PICC LINE PATENT AND HAS BLOOD RETURN. PT ON POTASSIUM IV RUNNING AT 100ML/HR PER PROTOCOL. MORNING MEDICATIONS GIVEN. LUNGS AUSCULTATED WITH COARSE CRACKLES NOTED. PT WAS ABLE TO EAT A FEW ICE CHIPS WITHOUT PROBLEM. 2+ EDEMA NOTED TO BILATERAL LOWER EXTREMITIES. 2+ EDEMA NOTED TO L ELBOW, WITH REDNESS AND SWELLING. 2+ EDEMA NOTED TO R ELBOW, SWELLING BLISTER WITH PEELING SKIN. STAGE II PRESSURE ULCER ON COCCYX AREA, GENERALIZED BLANCHABLE REDNESS TO THE AREA WELL. CALL LIGHT AND WALL SUCTION IN REACH. WILL CONTINUE TO MONITOR.
[2021-03-08 12:52] VITALS: BP 145/71; PULSE 91; TEMP 98.8
--- NOTE | 2021-03-08 12:59 | NUR ---
JACOB faxed updates to Iván at [facility].
[2021-03-08 16:16] LABS: CALCIUM 7.7 mg/dL (8.4-10.2); CREATININE, serum 0.72 (0.66-1.25); POTASSIUM 3.7 mmol/L (3.4-5.0)
[2021-03-08 16:20] VITALS: BP 153/63; PULSE 96; TEMP 98.6
--- NOTE | 2021-03-08 20:00 | NUR ---
Assessment complete. Patient is alert and oriented with chronic speech impedement which is difficult to understand at times. He has no complaints of pain. He is breathing well on RA and tolerates small bites of applesauce/ice chips with crushed meds. He has generalized edema on upper and lower extremities with 1-2+ pitting. Partial bed bath is provided at this time; Stage II pressure ulcers x3 are noted on coccyx and new mepilex is applied. Oral hygeine is provided as well; Patient uses suction at bedside for excretions, he is assisted at this time. Neuro checks intact. Bed alarm set and call light in reach, will continue to monitor.
[2021-03-08 20:15] VITALS: BP 148/66; PULSE 94; TEMP 98.7
[2021-03-09] VITALS (445 sets, daily range): BP systolic 89–158; BP diastolic 41–84; PULSE 68–95; TEMP 98–102.1; O2SAT 83–100
[2021-03-09 06:42] LABS: MEAN CELL VOLUME 112 fl (80.0-100.0); MEAN CORPUSCULAR HGB CONC 30 g/dl (33.0-37.0); MEAN PLATELET VOLUME 11.3 fl (7.4-10.4); PLATELET COUNT 176 K/mm3 (130-400); RED BLOOD COUNT 2.44 M/mm3 (4.20-5.60); REDCELL DISTRIBUTION WIDTH-CV 15.7 % (11.5-14.5)
[2021-03-09 06:47] LABS: CALCIUM 7.9 mg/dL (8.4-10.2); CREATININE, serum 0.7 (0.66-1.25); POTASSIUM 3.6 mmol/L (3.4-5.0)
[2021-03-09 06:48] LABS: HEMATOCRIT 27.3 % (42.0-52.0); HEMOGLOBIN 8.3 g/dl (13.5-18.0); MEAN CORPUSCULAR HEMOGLOBIN 34 pg (27.0-31.0)
[2021-03-09 07:07] LABS: C-REACTIVE PROTEIN 15.1 mg/dL (0.0-0.9)
[2021-03-09 08:26] LABS: BAND 11 % (0-10); LYMPHOCYTE 35 % (20.0-51.0); NEUTROPHILS 54 % (42.0-75.2); PLATELET ESTIMATE NORMAL (NORMAL)
[2021-03-09 09:05] LABS: ERYTHROCYTE SEDIMENTATION RATE > 140 mm/hr (0-30)
--- NOTE | 2021-03-09 11:55 | NUR ---
Nephrology has been consulted. The patient is to have an NG tube placed. JACOB faxed updates to Iván at [facility].
[2021-03-09 13:54] LABS: ALBUMIN 2.6 gm/dL (3.5-5.0); BILIRUBIN,TOTAL 0.8 mg/dL (0.0-1.0); CALCIUM 8.2 mg/dL (8.4-10.2); CREATININE, serum 0.75 (0.66-1.25); POTASSIUM 3.4 mmol/L (3.4-5.0); TOTAL PROTEIN 6.9 gm/dL (6.4-8.2)
--- NOTE | 2021-03-09 15:45 | NUR ---
PT ARRIVED IN ICU POST CODE BLUE. ATTACHED TO MONITORING. ASSESSMENT AND VITAL SIGNS DOCUEMNTED.
[2021-03-09 16:06] LABS: ARTERIAL BLD GAS O2 SATURATION 99.3 % (92-100); ARTERIAL BLD GAS TCO2 CT 35.8; ARTERIAL BLOOD GAS BASE EXCESS 11.5 (-2-2); ARTERIAL BLOOD GAS HCO3 34.6 meq/L (22-26); ARTERIAL BLOOD GAS PCO2 39.1 mmHg (35-45); ARTERIAL BLOOD GAS pH 7.57 (7.35-7.45)
[2021-03-09 16:07] LABS: ARTERIAL BLOOD GAS PO2 419.9 mmHg (80-100)
[2021-03-09 16:29] LABS: CALCIUM 7.1 mg/dL (8.4-10.2); CREATININE, serum 0.65 (0.66-1.25); MAGNESIUM 1.9 mg/dL (1.6-2.3); PHOSPHOROUS 5.3 mg/dL (2.5-4.5); POTASSIUM 5.2 mmol/L (3.4-5.0)
--- NOTE | 2021-03-09 16:37 | NUR ---
JACOB responded to code. JACOB contacted the patient's brother, Tu, and transferred the phone to the PA. The PA provided an update to Tu on the patient's changed status. The patient is now intubated and has transferred down to the ICU. JACOB updated Iván at [facility].
--- NOTE | 2021-03-09 17:00 | NUR ---
0700 PT RECEIVED RESTING IN BED. NO S/S OF DISTRESS NOTED. CALL-LIGHT IN REACH. BED IN LOW POSITION 0900 PT ASSESSED AND NOTED TO HAVE A COUGH. PT NPO DUE TO THE RESULT OF PREVIOUS SWALLOW EVALUATION. PO MEDICATIONS HELD AT THIS THIS TIME. PT USING SUCTION YANKER DUE TO HIS MUCUS. CURTIS IN PLACE AND DRAINING. 1000 PROVIDER MADE AWARE THAT PT HAS PO MEDICATIONS THAT PT IS UNABLE TO TAKE. PT AND PHARMACIST AT THE BEDSIDE AND WILL MAKE SWITCH TO PT MEDICATIONS. 1015 SPEECH THERAPIST AT THE BEDSIDE. CALL PLACED TO PT BROTHER SO HE COULD SPEAK TO HIM. 1100 DRESSING TO THE SACRUM CHANGED. 1120 ATTEMPT MADE TO INSERT NG TUBE BUT UNABLE TO INSERT PT WOULD NOT FOLLOW INSTRUCTIONS TO SWALLOW FOR NG TUBE INSERTION. 1200 PT RESTING IN BED WATCHING TV. 1410 ANOTHER ATTEMPT MADE TO INSERT PT'S NG TUBE BUT PT DECLINES AT THIS TIME. PT MADE AWARE THE TUBE SHOULD BE INSERTED FOR US TO FEED HIM IN THE MEAN TIME DUE TO HIS TROUBLE SWALLOW.
--- NOTE | 2021-03-09 17:04 | NUR ---
PT INTUBATED AT [address] CARCAMO. 8.0 ETT 23 AT THE LIP. COLOR CHANGE AND GOOD BREATH SOUNDS
--- NOTE | 2021-03-09 17:12 | NUR ---
MD Maurilio here to assess pt
[2021-03-09 18:30] LABS: CALCIUM 7.6 mg/dL (8.4-10.2); CREATININE, serum 0.79 (0.66-1.25); POTASSIUM 3.4 mmol/L (3.4-5.0)
--- NOTE | 2021-03-09 18:48 | NUR ---
1514 CALL RECEIVED FROM Moolta THAT PT HEART RATE IS IN THE 30'S. IMMEDIATELY WENT TO PT'S ROOM AND HE WAS NOTED PALE WITH A BLANK STARE. PT NOT STOP RESPONDING TO HIS NAME OR STERNAL RUB AND HIS EYE CLOSED. 1515 UNABLE TO FIND A PULSE. CODE CALLED. LABORATORY CLERK CAME TO THE ROOM AND WHEN TO GET THE CRASH CART. PT ATTACHED TO MONITOR. 1517 CPR STARTED. ED PROVIDER, HOSPITALIST, SENIOR CLINICAL RESEARCH SCIENTIST, SERVICES EXECUTIVE, ADVANCED SOLUTIONS ARCHITECT, AUTOMATIC CASTING MACHINE OPERATOR, AND RESPIRATORY THERAPIST IN THE ROOM. 1518 PT RECEIVING BREATHS VIA AMBU BAG BY RESPIRATORY THERAPIST. H'S AND T'S REVIEWED 1520 NO PULSE PALPATED. 1 MG OF EPINEPHRINE ADMINISTERED. COMPRESSIONS STARTED. 1522 NO PULSE PALPATED. COMPRESSIONS RESUMED. 1523 BICARB AMP ADMINISTERED. LABS DRAWN. 1524 PT NOTED WITH NO PULSE. COMPRESSIONS RESUMED. D50 ADMINISTERED. 1526 PT NOTED WITH A PULSE. 1527 PT INTUBATED BY E.D. PROVIDER. BLOOD GLUCOSE CHECKED. 1529 12 LEAD EKG OBTAINED. HR 83, BP 96/43, NSR ON THE MONITOR. 1530 CHEST X-RAY OBTAINED. 1532 PT TRANSPORTED TO THE INTESIVE CARE UNIT BY MYSELF, RESPIRATORY THERAPIST, ADVANCED SOLUTIONS ARCHITECT, AND SEPARATOR OPERATOR. 1535 CALL PLACED TO THE PT'S FAMILY MEMBER BY HOSPITALIST WITH THE PT'S CURRENT STATUS. 1622 REPORT GIVEN TO ICU NURSE JEVON AT THE BEDSIDE.
--- NOTE | 2021-03-09 19:15 | NUR ---
Received report from IDALIA Black. Patient resting quietly in bed, all vitals within normal limits. Levophed and Propofol on standby at time of bedside report. Patient's son, Tu is at the bedside. Questions encouraged and answered. Bed in lowest position, all alarms on. Call light within reach.
--- NOTE | 2021-03-09 23:55 | NUR ---
Patient has been without any sedation thus far in NOC shift. Patient primarily unresponsive, some withdrawal noted to painful stimuli. Patient currently chewing at ET tube. Propofol initiated for comfort.
[2021-03-10] VITALS (1017 sets, daily range): BP systolic 120–155; BP diastolic 62–73; PULSE 76–87; TEMP 100.2–102.5; O2SAT 33–100
[2021-03-10 05:17] LABS: MEAN CORPUSCULAR HGB CONC 32 g/dl (33.0-37.0); MEAN PLATELET VOLUME 10.8 fl (7.4-10.4); PLATELET COUNT 175 K/mm3 (130-400); RED BLOOD COUNT 2.36 M/mm3 (4.20-5.60); REDCELL DISTRIBUTION WIDTH-CV 15.6 % (11.5-14.5)
[2021-03-10 05:21] LABS: HEMATOCRIT 25.1 % (42.0-52.0); HEMOGLOBIN 7.9 g/dl (13.5-18.0); MEAN CORPUSCULAR HEMOGLOBIN 33 pg (27.0-31.0)
[2021-03-10 05:22] LABS: MEAN CELL VOLUME 106 fl (80.0-100.0)
[2021-03-10 05:47] LABS: ARTERIAL BLD GAS TCO2 CT 35.5; ARTERIAL BLOOD GAS BASE EXCESS 13.6 (-2-2); ARTERIAL BLOOD GAS HCO3 34.6 meq/L (22-26); ARTERIAL BLOOD GAS PCO2 31.5 mmHg (35-45)
[2021-03-10 05:48] LABS: ARTERIAL BLOOD GAS PO2 200.2 mmHg (80-100); ARTERIAL BLOOD GAS pH 7.66 (7.35-7.45)
[2021-03-10 05:55] LABS: BAND 2 % (0-10); HYPOCHROMIA 1+; LYMPHOCYTE 65 % (20.0-51.0); METAMYELOCYTE 1 % (0-0); NEUTROPHILS 32 % (42.0-75.2)
[2021-03-10 05:56] LABS: ANISOCYTOSIS 1+; PLATELET ESTIMATE NORMAL (NORMAL)
--- NOTE | 2021-03-10 06:16 | NUR ---
Contacted [facility] and received a referral number from Niurka. Patient information given to David. MAValeria requests updates for change in plan of care or if reflexes change. Referral #[id number]
[2021-03-10 06:17] LABS: ALBUMIN 2.2 gm/dL (3.5-5.0); BILIRUBIN,TOTAL 0.6 mg/dL (0.0-1.0); CALCIUM 7.5 mg/dL (8.4-10.2); CREATININE, serum 0.68 (0.66-1.25); TOTAL PROTEIN 6.1 gm/dL (6.4-8.2)
[2021-03-10 06:28] LABS: POTASSIUM 2.6 mmol/L (3.4-5.0)
--- NOTE | 2021-03-10 09:00 | NUR ---
Pt remains unresponsive after propofol gtt discontinued for EEG - restraints removed
--- NOTE | 2021-03-10 11:00 | NUR ---
MD Rhett and myself spoke with pt's brother Tu and sister Hina (telephone) regarding plan of care. Family wishing to change pt to DNR now, and transition to comfort care with compassionate extubation after pt's siblings visit. [facility] aware of situation (last updated at 6200)
--- NOTE | 2021-03-10 15:49 | NUR ---
Pt joined by 3 siblings, called for pt to be read his Last Rites.
--- NOTE | 2021-03-10 17:00 | NUR ---
has completed the reading of Last Rites to pt with family present
--- NOTE | 2021-03-10 18:00 | NUR ---
Additional siblings present in room. Education provided, all questions answered
--- NOTE | 2021-03-10 18:53 | NUR ---
Family states they are ready to say goodbye. Pt extuabated after recieving IV morphine and ativan while family stepped into waiting room. Family members (3) brought back in to be with pt.
--- NOTE | 2021-03-10 19:09 | NUR ---
Time of : 1905 confirmed by absence of heart sounds auscultated by myself and IDALIA Garcia. [facility] notified. Case # [id number]
--- NOTE | 2021-03-10 19:21 | NUR ---
Per [facility]: Pt is not a canidate for tissue or eye donation. Family has chosen [facility] in [place], [place]. Control Operator Flow Coat IDALIA Lugo notified.
--- NOTE | 2021-03-10 21:00 | NUR ---
RELEASED TO THE HOME AT THIS TIME
[2021-03-12 08:43] LABS: CK total - for Isoenzymes 87 U/L (39 - 308)
[2021-03-14 17:08] LABS: CK total - for Isoenzymes 244 U/L (39 - 308)
[2021-03-14 22:09] LABS: A/G RATIO (PEP) 0.35 (()); BETA GLOBULINS (PEP) 0.5 g/dL (0.7-1.2)
== END 2021-03-10 21:00 | disposition expired | DRG 870 ==
LOC: COL.ER 10:28 → ICU 12:43 → MEDICAL 03-07 16:44 → ICU 03-09 15:38
PROVIDERS: Emergency Medicine; Internal Medicine; Internal Medicine Critical Care Medicine; Internal Medicine Sleep Medicine; Nurse Practitioner; Physician Assistant; ADMIT Internal Medicine
PROC: 02HV33Z Insertion of Infusion Device into Superior Vena Cava, Percutaneous Approach (ICD-10-PCS; 2021-02-28)
PROC: 5A1955Z Respiratory Ventilation, Greater than 96 Consecutive Hours (ICD-10-PCS; principal; 2021-03-04)
PROC: 0BH17EZ Insertion of Endotracheal Airway into Trachea, Via Natural or Artificial Opening (ICD-10-PCS; 2021-03-04)
PROC: 5A12012 Performance of Cardiac Output, Single, Manual (ICD-10-PCS; 2021-03-09)
DX: A41.01 Sepsis due to Methicillin susceptible Staphylococcus aureus (principal); I21.A1 Myocardial infarction type 2; I33.0 Acute and subacute infective endocarditis; J96.01 Acute respiratory failure with hypoxia; I48.92 Unspecified atrial flutter; E87.1 Hypo-osmolality and hyponatremia; N39.0 Urinary tract infection, site not specified; E87.2 Acidosis; N17.9 Acute kidney failure, unspecified; T17.890A Other foreign object in other parts of respiratory tract causing asphyxiation, initial encounter; G93.1 Anoxic brain damage, not elsewhere classified; E46 Unspecified protein-calorie malnutrition; R65.20 Severe sepsis without septic shock; Z66 Do not resuscitate; Z51.5 Encounter for palliative care; E11.65 Type 2 diabetes mellitus with hyperglycemia; Z91.14 Patient's other noncompliance with medication regimen; M79.605 Pain in left leg; M79.604 Pain in right leg; R53.1 Weakness; R53.81 Other malaise; E87.8 Other disorders of electrolyte and fluid balance, not elsewhere classified; R74.01 Elevation of levels of liver transaminase levels; E87.5 Hyperkalemia; D53.9 Nutritional anemia, unspecified; B95.61 Methicillin susceptible Staphylococcus aureus infection as the cause of diseases classified elsewhere; M48.8X6 Other specified spondylopathies, lumbar region; I46.8 Cardiac arrest due to other underlying condition; T17.990A Other foreign object in respiratory tract, part unspecified in causing asphyxiation, initial encounter; M71.121 Other infective bursitis, right elbow; D72.819 Decreased white blood cell count, unspecified; K44.9 Diaphragmatic hernia without obstruction or gangrene
CPT/HCPCS: 99223-AI; 99232-AI; 99233-AI; A4314; A9585; C1751; C9113; J0282; J0330; J0690; J0696; J1644; J1650; J1815; J1940; J2060; J2270; J2543; J2704; J3010; J3370; J3480; J7030; J7050; J7060; J7070; J7120